=== PATIENT | male | born 1975 | race Caucasian/White ===

== ENCOUNTER 2023-06-18 03:29 | Emergency (ER) | payer OTHER, SELFPAY ==
[2023-06-18 03:33] VITALS: BP 140/74
[2023-06-18 03:46] VITALS: BMI 30.5
--- NOTE | 2023-06-18 03:47 | ED.GENMED ---
History of Present Illness
General
Chief Complaint: Chest Pain
Source: patient and family
Exam Limitations: none
Time Seen by Provider: 06/18/23 03:35
Nursing documentation reviewed up to this point in time: agreed with
Travel History
Have you had any contact with someone who has COVID-19?: No
Do you have any symptoms of coronavirus? Fever > 100 degrees, chills, cough, shortness of breath, sore throat, loss of taste or smell, muscle aches, or headache?: No
History of Present Illness
History of Present Illness:
Pleasant 47-year-old male that presents with left-sided chest pain has been present intermittently for the last 2 days. He states he came in tonight because the pain awakened him from sleep and the pain radiated into his left arm. He reports that
the pain has not been reproducible. He works as a software quality specialist and has 'the usual 'amount of stress in his life. Patient states that when he felt the pain running down his left arm, he became panicked and felt a panic attack coming on.
During this time he felt short of breath. Panic symptoms seem to have resolved. Denies fever, chills, nausea or vomiting.
Past History
Past History
ED Past Medical History: None; Negative HTN or Hypercholesterolemia
ED Past Surgical History: Orthopedic (achilles, omfs)
Social History
Tobacco: Non-smoker
Alcohol: None
Drug: None
Personal:
Living: with family
Employment: Employed
Family History
Family History: Hypertension
Review of Systems
Review of Systems
Allergies reviewed?: Yes
Other source history: family
All Other Systems: ROS reviewed and negative except as documented in HPI and ROS
Constitutional: Reports no symptoms
EENT: Reports no symptoms
Respiratory: Reports trouble breathing (Now resolved)
Cardiac: Reports chest pain
ABD/GI: Reports no symptoms
: Reports no symptoms
Musculoskeletal: Reports no symptoms
Skin: Reports no symptoms
Neurological: Reports no symptoms
Endocrine: Reports no symptoms
Hematologic/Lymphatic: Reports no symptoms
Psychiatric: Reports no symptoms
Phy Exam
General Physical Exam
General Presentation: well appearing and no apparent distress
General Skin: warm and dry
General Habitus: normal
General Mental: alert
General Hydration: appears well hydrated
ENT Exam
ENT Exam: EOMI, pharynx normal, neck supple and normocephalic
Eye Exam
Eye Exam: PERRL, cornea clear and conjunctiva normal
Cardiovascular Exam
Cardiovascular Exam: regular rate/rhythm, no edema, no murmur and normal peripheral pulses
Pulmonary Exam
Pulmonary Exam: lungs clear, no respiratory distress, no rales, no crackles, no rhonchi, no stridor, no wheezing and no cough
Gastrointestinal Exam
Gastrointestinal Exam: normal bowel sounds, non tender, soft, no organomegaly, no pulsatile mass and non distended
Neurological Exam
Neurological Exam: alert, oriented x3, no motor deficits and speech normal
Musculoskeletal Exam
Musculoskeletal Exam: full ROM and no edema
Skin Exam
Skin Exam: normal color, warm/dry, no rash and no petechia
Psychiatric Exam
Psychiatric Exam: normal mood/affect
Scores
Heart Score for Chest Pain Patients
STEMI patient?: Not applicable
Course
Orders/Labs/Results
Orders:
Orders
06/18/23 03:30
Electrocardiogram (*1) Urgent
Reason for Study: Chest Pain
EKG- Treatment ONCE
06/18/23 03:52
CMP [Comprehensive Metabolic Panel] Urgent
Complete Blood Count/With Diff Urgent
D-Dimer Urgent
Prothrombin Time Urgent
Troponin I Urgent
06/18/23 04:35
CT Chest Pe Study Urgent
Comment:
Reason For Exam: cp, dyspnea, elev ddimer
Abnormal Lab Results
06/18/23
03:52
RDW 11.2 L %
(11.5-14.5)
Monocytes % 9.6 H %
(1.7-9.3)
D-Dimer 0.88 H ug/mlFEU
(0.00-0.50)
Glucose 102 H mg/dl
(70-99)
06/18/23 03:52
06/18/23 03:52
Vital Signs
Initial and Last Documented VS:
Initial Vital Signs
Pulse Resp BP Pulse Ox
58 16 140/74 98
06/18/23 03:33 06/18/23 03:33 06/18/23 03:33 06/18/23 03:33
Last Documented Vital Signs
Pulse Resp BP Pulse Ox
60 16 106/65 93
06/18/23 06:00 06/18/23 06:00 06/18/23 06:00 06/18/23 06:00
*Critical Care Note
Total Time (30-74mins, 75-104mins- exclusive of procedures): Not Applicable
Update Note
Update Note:
CTA chest for PE
No prior imaging for comparison
IMPRESSION:
-Technically adequate quality of the contrast bolus. No evidence of acute pulmonary embolus.
-No evidence of pneumonia or significant pulmonary edema. Mild bibasilar atelectasis.
-No pneumothorax or significant pleural effusion.
-Normal heart size. No significant pericardial effusion. No significant coronary artery calcification.
-Normal caliber and contour of the thoracic aorta.
-No acute osseous abnormality. Incidentally noted partial fusion of the T3-4 vertebrae.
-The visualized upper abdomen demonstrates no acute abnormality. Incidentally noted hypoattenuating lesion in the right lobe of the liver, incompletely evaluated, which measures approximate 2.3 cm. Consider dedicated (nonemergent) right upper
quadrant sonogram or multiphase CT/MRI.
ED Attending Note
-
Portions of this chart may have been created with voice recognition software.� Occasional wrong word or��sound alike� substitutions may have occurred due to the inherent limitations of voice recognition software.
Discharge Plan
Departure
Patient Disposition: Home (Routine Discharge)
Date of Disposition: 06/18/23
Time of Disposition: 06:01
Patient with high blood pressure during this ER visit?: No
Condition: Good
Discharge Problem:
Chest pain
Instructions: Chest Pain DCA Follow Up
Prescriptions:
No Action
MULTIVITAMIN
1 tab PO DAILY
Glucosamine
1 tab PO DAILY
Prentice 3-6-9 Complex Softgel
1 tab PO DAILY
Curcumin
protein
turmeric
Referrals:
Mckayla Hardwick, DO [Family Provider] -
Activity Restrictions/Additional Instructions:
As discussed, please follow-up with your family doctor for an ultrasound of the right lobe of your liver. CT report attached
It was a pleasure meeting you and taking part in your care. We hope for your continued healing and wellness.
Please read discharge instructions in their entirety. However, they are for general education and may not describe your exact diagnosis at discharge. Information on your ER visit and medical conditions were discussed with you along with appropriate
follow up information...
If indicated, please take your medications as instructed and indicated on discharge paperwork.
Please schedule a follow up appointment as directed. Call to schedule an appointment
Please return to the emergency department with ANY change in, persisting, or worsening of symptoms. If any of your symptoms do not improve, or persist, or become more severe within 6-12 hours, please return to the emergency department for further
care.
Please return to the emergency department if you develop a headache, neck pain/stiffness, fever greater than 100.4F, chest pain, shortness of breath, persistent nausea, vomiting, slurred speech, difficulty walking, numbness/tingling, weakness, signs
of infection or any other symptoms that are worrisome to you.
If you have any questions or concerns please do not hesitate to call the Hospital at or E-mail me directly at [email or web address]
Interventions
Interventions:
*Risk Screen - Suicide Last Done: 06/18/23 03:33
*General Assessment Last Done: 06/18/23 03:49
*Neglect/Abuse Screening Last Done: 06/18/23 03:33
ED- Fall Risk Assessment Last Done: 06/18/23 04:09
*ED COVID-19 Vaccine History Last Done: 06/18/23 03:48
*Nursing Disposition Last Done: 06/18/23 06:15
ED- Cardiac Assessment Last Done: 06/18/23 04:09
Discharge Date and Time
Discharge Date/Time: 06/18/23 06:15
[2023-06-18 04:00] VITALS: BP 115/69
[2023-06-18 04:03] LABS: % Basophils 0.8 % (0-2); % Eosinophils 1.6 % (0-6); % Immature Granulocytes 0.3 % (0-0.5); % Lymphocytes 43.9 % (20.5-51.1); % Monocytes 9.6 % (1.7-9.3); % Neutrophils 43.8 % (42.2-75.2); Absolute Basophils 0.1 10^3/uL (0-0.2); Absolute Eosinophils 0.1 10^3/uL (0-0.7); Absolute Lymphocytes 2.8 10^3/uL (1.2-3.4); Absolute Monocytes 0.6 10^3/uL (0.1-0.6); Absolute Neutrophils 2.7 10^3/uL (1.4-6.5); Hematocrit 45.3 % (39.0-52.0); Hemoglobin 15.6 g/dL (13.0-18.0); Mean Corp Hgb Conc. 34.4 g/dL (33.0-37.0); Mean Corpuscular Hgb 29.4 pg (27.0-31.0); Mean Corpuscular Volume 85.5 fL (80.0-94.0); Nucleated Red Blood Cells % 0 % (-); Platelet Count 217 10^3/uL (130-400); Red Cell Dist. Width 11.2 % (11.5-14.5); White Blood Cell Count 6.3 10^3/uL (4.8-10.8)
[2023-06-18 04:14] LABS: INR 0.95; PT 12.5 Sec (11.4-14.6)
[2023-06-18 04:17] LABS: D-Dimer 0.88 ug/mlFEU (0.00-0.50)
[2023-06-18 04:18] LABS: ALT (SGPT) 40 U/L (0-50); AST (SGOT) 46 U/L (17-59); Albumin 4.6 g/dl (3.5-5.0); Alkaline Phosphatase 90 U/L (38-126); Blood Urea Nitrogen 17 mg/dl (9-20); Calcium 9.7 mg/dl (8.4-10.2); Carbon Dioxide 27 mmol/L (22-30); Chloride 102 mmol/L (98-107); Estimated Creatinine Clearance 87 ml/min; Glucose 102 mg/dl (70-99); Potassium 3.8 mmol/L (3.5-5.1); Sodium 140 mmol/L (135-145); Total Bilirubin 0.7 mg/dl (0.2-1.3); Total Protein 7.4 g/dl (6.3-8.2); eGFR > 60.00
[2023-06-18 04:29] LABS: Troponin I < 0.012 ng/ml
[2023-06-18 05:15] VITALS: BP 110/66
[2023-06-18 06:00] VITALS: BP 106/65
== END 2023-06-18 06:15 | disposition home or self-care (01) ==
LOC: EMR 03:29
PROVIDERS: EMERGENCY PHYSICIAN Student in an Organized Health Care Education/Training Program; FAMILY PHYSICIAN Family Medicine
DX: R07.9 Chest pain, unspecified (principal); R06.02 Shortness of breath
CPT/HCPCS: 99285; 71275; 80053; 84484; 85025; 85379; 85610; 93005; Q9967